=== PATIENT | female | born 1990 | race Caucasian/White ===

== ENCOUNTER → 2023-08-24 | Outpatient (CLI) | payer BC ==
--- NOTE | 2023-08-24 09:41 | CT ---
EXAMINATION TYPE: CT sinus wo con DATE OF EXAM: 08/24/2023 COMPARISON: None HISTORY: Chronic maxillary sinusitis CT DLP: 587.5 mGycm. Automated Exposure Control for Dose Reduction was Utilized. TECHNIQUE: CT scan of the sinuses is performed without contrast, axial images are obtained, coronal r eformatted images are also reviewed. FINDINGS: There is mild bilateral mucosal thickening of the maxillary sinus. Small mucous retention c yst or polyp along the lower margin of the left maxillary sinus. There is moderate ethmoidal chronic appearing sinusitis. Frontal sinus is hypoplastic. Sphenoid sinus demonstrates mild to moderate dorsal thickening. There is a slight nasal septal deviation. The ostiomeatal complex is patent on the left and occluded on the right secondary to localized mucosal thickening. There is increased soft tissue within the posterior nasal passage greater on the right likely in the basis of mucosal thickening rather than polyposis would also be in the differential diagnosis. 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 Visualized portion of mastoid air cells show no abnormal opacification. The globes are intact bilate rally. IMPRESSION: 1. Mild to moderate chronic appearing sinusitis most marked involving the ethmoid air cells
== END | disposition home or self-care (01) ==
LOC: RADCTMAIN 08:47
PROVIDERS: ATTEND Otolaryngology
DX: J32.0 Chronic maxillary sinusitis (principal)
CPT/HCPCS: 70486